=== PATIENT | female | born 1945 | race Caucasian/White ===

== ENCOUNTER 2016-12-14 16:19 | Inpatient (IN) | payer MEDICARE, BC ==
[2016-12-14] MEDS ORDERED: ALBUTEROL NEB SOL 2.5MG/3ML 1 VIAL SOL NEB PRN (16:24)
[2016-12-14] MEDS ORDERED: LEVOFLOXACIN 500 MG (PREMIX) 500 MG/100 ML SOL IV SCH (17:00)
[2016-12-14] MEDS: SOLUMEDROL 125 MG/2 ML 125 MG/2 ML PDS IV SCH ×2 (17:00→22:12)
[2016-12-14] MEDS: SODIUM CHLORIDE 0.9% FLUSH 10 ML SOL IV SCH ×3 (17:16→22:13)
[2016-12-14] MEDS ORDERED: POTASSIUM CHLORIDE 2 MEQ/ML 40 MEQ, LIDOCAINE HCL 1% MDV 2 ML in SODIUM CHLORIDE 0.9% 5... IV ONE (17:58)
[2016-12-14] MEDS ORDERED: POTASSIUM CHLORIDE 10 MEQ TER PO SCH (18:00)
[2016-12-14] MEDS ORDERED: ZOLPIDEM TARTRATE 5 MG PO PRN (18:12)
[2016-12-14] MEDS: ALBUTEROL/IPRATROPIUM 1 VIAL SOL INH SCH ×2 (18:18→21:28)
[2016-12-14] MEDS ORDERED: POTASSIUM CHLORIDE 2 MEQ/ML SOL IV ONE (18:42)
[2016-12-14] MEDS ORDERED: LIDOCAINE HCL 1% MPF SOL ONE (18:42)
[2016-12-14] MEDS ORDERED: PATIENT EDUCATION 1 MISC PRN (20:01)
[2016-12-14] MEDS: ASPIRIN EC 81 MG PO SCH (20:50)
[2016-12-14] MEDS: METOPROLOL TARTRATE 25 MG TAB PO SCH (20:50)
[2016-12-14] MEDS: Non-Formulary Medication MISC (Fluticasone/Salmeterol 500/50 1 PUFF) INH SCH (20:51)
[2016-12-14] MEDS ORDERED: VALSARTAN 320 MG PO SCH (21:00)
[2016-12-14] MEDS ORDERED: VALSARTAN 80 MG TABLET PO SCH (21:00)
[2016-12-14] MEDS: ROSUVASTATIN CALCIUM 10 MG TAB PO SCH (21:28)
[2016-12-14] MEDS ORDERED: VALSARTAN 320 MG TAB PO SCH (21:30)
[2016-12-14] MEDS: ZOLPIDEM TARTRATE 5 MG TAB PO PRN (22:26)
[2016-12-15] MEDS: SODIUM CHLORIDE 0.9% FLUSH 10 ML SOL IV SCH ×3 (00:20→17:09)
[2016-12-15] MEDS: ALBUTEROL/IPRATROPIUM 1 VIAL SOL INH SCH ×6 (02:01→21:59)
[2016-12-15] MEDS: SOLUMEDROL 125 MG/2 ML 125 MG/2 ML PDS IV SCH (04:36)
[2016-12-15] MEDS: LEVOTHYROXINE SODIUM 50 MCG TAB PO SCH (06:24)
[2016-12-15 07:26] LABS: BASOPHILS % (AUTO) 0 % (0-3); EOSINOPHILS % (AUTO) 0 % (0-9); HEMATOCRIT 40 % (35-47); MEAN CORPUSCULAR HGB CONC 34.8 gm/dl (32.0-36.0); MEAN CORPUSCULAR VOLUME 96 fL (81-99); MONOCYTES % (AUTO) 1.4 % (0-12); NEUTROPHILS % (AUTO) 94.7 % (37-80)
[2016-12-15 07:30] LABS: CALCIUM 9.7 mg/dl (8.5-10.1); POTASSIUM 3.8 mMol/L (3.5-5.1)
[2016-12-15] MEDS ORDERED: [UNRECOGNIZED DRUG - OTHER] INH SCH (09:00)
[2016-12-15] MEDS ORDERED: FUROSEMIDE 20 MG PO SCH (09:00)
[2016-12-15] MEDS ORDERED: FLUTICASONE PROPIONATE NAS SCH (09:00)
[2016-12-15] MEDS: ESCITALOPRAM 10 MG TAB PO SCH (09:05)
[2016-12-15] MEDS: METOPROLOL TARTRATE 25 MG TAB PO SCH (09:05)
[2016-12-15] MEDS: LEVOFLOXACIN 500 MG TAB PO SCH (09:05)
[2016-12-15] MEDS: FUROSEMIDE 20 MG TAB PO SCH (09:05)
[2016-12-15] MEDS: ENOXAPARIN 40 MG SOL SC SCH (09:06)
[2016-12-15] MEDS: ASCORBIC ACID/COPPER/LUTEIN/ 1 CAP CAP PO SCH ×2 (09:06→20:04)
[2016-12-15] MEDS: PREDNISONE 20 MG TAB PO SCH (09:06)
[2016-12-15] MEDS: NIFEDIPINE 30 MG ER TABLET PO SCH (09:07)
[2016-12-15] MEDS: CHOLECALCIFEROL 1,000 IU TAB PO SCH (09:07)
[2016-12-15] MEDS: Non-Formulary Medication MISC (Fluticasone/Salmeterol 500/50 1 PUFF) INH SCH (09:08)
[2016-12-15] MEDS: CALCITONIN (SALMON) 200 IU/Actuation SPR NAS SCH (09:25)
[2016-12-15] MEDS: VALSARTAN 80 MG TABLET PO SCH (20:01)
[2016-12-15] MEDS: FLUTICASONE PROPIONATE SPR NAS SCH (20:02)
[2016-12-15] MEDS: ASPIRIN EC 81 MG PO SCH (20:03)
[2016-12-15] MEDS: ROSUVASTATIN CALCIUM 10 MG TAB PO SCH (20:03)
[2016-12-15] MEDS: METOPROLOL TARTRATE 50 MG TAB PO SCH (20:04)
[2016-12-15] MEDS ORDERED: FLUTICASONE/SALMETEROL 500/50 60 PUFF DSK INH SCH (21:00)
[2016-12-15] MEDS: ZOLPIDEM TARTRATE 5 MG TAB PO PRN (21:58)
[2016-12-16] MEDS: ALBUTEROL/IPRATROPIUM 1 VIAL SOL INH SCH ×6 (01:32→21:23)
[2016-12-16] MEDS: SODIUM CHLORIDE 0.9% FLUSH 10 ML SOL IV SCH ×3 (01:33→19:03)
[2016-12-16] MEDS: LEVOTHYROXINE SODIUM 50 MCG TAB PO SCH (06:06)
[2016-12-16 08:36] LABS: BASOPHILS % (AUTO) 0 % (0-3); EOSINOPHILS % (AUTO) 0 % (0-9); HEMATOCRIT 40 % (35-47); MEAN CORPUSCULAR HGB CONC 35.4 gm/dl (32.0-36.0); MEAN CORPUSCULAR VOLUME 96 fL (81-99); NEUTROPHILS % (AUTO) 81.3 % (37-80)
[2016-12-16 08:47] LABS: CALCIUM 9.7 mg/dl (8.5-10.1); POTASSIUM 3.2 mMol/L (3.5-5.1)
[2016-12-16] MEDS: METOPROLOL TARTRATE 50 MG TAB PO SCH ×2 (08:56→21:22)
[2016-12-16] MEDS: LEVOFLOXACIN 500 MG TAB PO SCH (08:56)
[2016-12-16] MEDS: ESCITALOPRAM 10 MG TAB PO SCH (08:56)
[2016-12-16] MEDS: FUROSEMIDE 20 MG TAB PO SCH (08:56)
[2016-12-16] MEDS: ENOXAPARIN 40 MG SOL SC SCH (08:56)
[2016-12-16] MEDS: PREDNISONE 20 MG TAB PO SCH (08:57)
[2016-12-16] MEDS: ASCORBIC ACID/COPPER/LUTEIN/ 1 CAP CAP PO SCH ×2 (08:57→21:17)
[2016-12-16] MEDS: CHOLECALCIFEROL 1,000 IU TAB PO SCH (08:57)
[2016-12-16] MEDS: NIFEDIPINE 30 MG ER TABLET PO SCH (08:57)
[2016-12-16] MEDS: CALCITONIN (SALMON) 200 IU/Actuation SPR NAS SCH (08:58)
[2016-12-16] MEDS ORDERED: FLUTICASONE PROPIONATE SPR NAS SCH ×2 (09:00→21:00)
[2016-12-16 10:16] LABS: NORMAL RBCS PRESENT
[2016-12-16] MEDS: VALSARTAN 80 MG TABLET PO SCH (21:21)
[2016-12-16] MEDS: ROSUVASTATIN CALCIUM 10 MG TAB PO SCH (21:22)
[2016-12-16] MEDS: ASPIRIN EC 81 MG PO SCH (21:22)
[2016-12-16] MEDS: FLUTICASONE PROPIONATE SPR NAS SCH (21:27)
[2016-12-16] MEDS: ZOLPIDEM TARTRATE 5 MG TAB PO PRN (22:42)
[2016-12-17] MEDS: ALBUTEROL/IPRATROPIUM 1 VIAL SOL INH SCH ×6 (03:58→22:08)
[2016-12-17] MEDS: LEVOTHYROXINE SODIUM 50 MCG TAB PO SCH (06:45)
[2016-12-17] MEDS: SODIUM CHLORIDE 0.9% FLUSH 10 ML SOL IV SCH ×3 (06:45→16:42)
[2016-12-17 07:12] LABS: BASOPHILS % (AUTO) 1 % (0-3); EOSINOPHILS % (AUTO) 0 % (0-9); HEMATOCRIT 40 % (35-47); MEAN CORPUSCULAR HGB CONC 33.6 gm/dl (32.0-36.0); MEAN CORPUSCULAR VOLUME 96 fL (81-99); MONOCYTES % (AUTO) 11.4 % (0-12); NEUTROPHILS % (AUTO) 70.7 % (37-80)
[2016-12-17] MEDS ORDERED: POTASSIUM CHLORIDE 10 MEQ TER PO ONE (08:36)
[2016-12-17] MEDS: ESCITALOPRAM 10 MG TAB PO SCH (09:46)
[2016-12-17] MEDS: METOPROLOL TARTRATE 50 MG TAB PO SCH ×2 (09:47→22:15)
[2016-12-17] MEDS: PREDNISONE 20 MG TAB PO SCH (09:47)
[2016-12-17] MEDS: LEVOFLOXACIN 500 MG TAB PO SCH (09:47)
[2016-12-17] MEDS: CHOLECALCIFEROL 1,000 IU TAB PO SCH (09:48)
[2016-12-17] MEDS: FUROSEMIDE 20 MG TAB PO SCH (09:50)
[2016-12-17] MEDS: ENOXAPARIN 40 MG SOL SC SCH (09:52)
[2016-12-17] MEDS: NIFEDIPINE 30 MG ER TABLET PO SCH (09:53)
[2016-12-17] MEDS: CALCITONIN (SALMON) 200 IU/Actuation SPR NAS SCH (10:13)
[2016-12-17] MEDS: ASCORBIC ACID/COPPER/LUTEIN/ 1 CAP CAP PO SCH ×2 (12:31→22:16)
[2016-12-17] MEDS: POTASSIUM CHLORIDE 10 MEQ TER PO SCH ×2 (12:32→22:14)
[2016-12-17] MEDS: ZOLPIDEM TARTRATE 5 MG TAB PO PRN (22:12)
[2016-12-17] MEDS: ASPIRIN EC 81 MG PO SCH (22:12)
[2016-12-17] MEDS: ROSUVASTATIN CALCIUM 10 MG TAB PO SCH (22:13)
[2016-12-17] MEDS: FLUTICASONE PROPIONATE SPR NAS SCH (22:14)
[2016-12-17] MEDS: VALSARTAN 80 MG TABLET PO SCH (22:24)
[2016-12-18] MEDS: ALBUTEROL/IPRATROPIUM 1 VIAL SOL INH SCH ×3 (04:57→10:02)
[2016-12-18] MEDS: LEVOTHYROXINE SODIUM 50 MCG TAB PO SCH (06:24)
[2016-12-18 07:02] LABS: BASOPHILS % (AUTO) 1 % (0-3); EOSINOPHILS % (AUTO) 1 % (0-9); HEMATOCRIT 40 % (35-47); MEAN CORPUSCULAR HGB CONC 34.2 gm/dl (32.0-36.0); MEAN CORPUSCULAR VOLUME 96 fL (81-99); MONOCYTES % (AUTO) 9.5 % (0-12); NEUTROPHILS % (AUTO) 69.9 % (37-80)
[2016-12-18 07:15] LABS: POTASSIUM 3.8 mMol/L (3.5-5.1)
[2016-12-18 08:28] VITALS: BP 149/94; PULSE 60; TEMP 97.6
[2016-12-18] MEDS: CHOLECALCIFEROL 1,000 IU TAB PO SCH (08:52)
[2016-12-18] MEDS: ESCITALOPRAM 10 MG TAB PO SCH (08:52)
[2016-12-18] MEDS: NIFEDIPINE 30 MG ER TABLET PO SCH (08:52)
[2016-12-18] MEDS: LEVOFLOXACIN 500 MG TAB PO SCH (08:52)
[2016-12-18] MEDS: FUROSEMIDE 20 MG TAB PO SCH (08:52)
[2016-12-18] MEDS: METOPROLOL TARTRATE 50 MG TAB PO SCH (08:52)
[2016-12-18] MEDS: CALCITONIN (SALMON) 200 IU/Actuation SPR NAS SCH (08:54)
[2016-12-18] MEDS: ASCORBIC ACID/COPPER/LUTEIN/ 1 CAP CAP PO SCH (08:54)
[2016-12-18] MEDS: ENOXAPARIN 40 MG SOL SC SCH (08:57)
[2016-12-18] MEDS: PREDNISONE 20 MG TAB PO SCH (08:58)
[2016-12-18] MEDS: POTASSIUM CHLORIDE 10 MEQ TER PO SCH (08:58)
[2016-12-18 10:05] VITALS: RESP 22; O2SAT 94
== END 2016-12-18 13:40 | disposition home or self-care (01) | DRG 192 ==
LOC: ACUTE CARE 16:26
PROVIDERS: ADMIT Family Medicine; ATTEND Family Medicine
PROC: F02Z1ZZ Dressing Assessment (ICD-10-PCS; principal; 2016-12-17)
PROC: F02Z0ZZ Bathing/Showering Assessment (ICD-10-PCS; 2016-12-17)
PROC: F02Z3ZZ Grooming/Personal Hygiene Assessment (ICD-10-PCS; 2016-12-17)
PROC: F01ZDZZ Gait and/or Balance Assessment (ICD-10-PCS; 2016-12-17)
PROC: F01ZBZZ Bed Mobility Assessment (ICD-10-PCS; 2016-12-17)
PROC: F01ZCZZ Transfer Assessment (ICD-10-PCS; 2016-12-17)
DX: J44.1 Chronic obstructive pulmonary disease with (acute) exacerbation (principal); I10 Essential (primary) hypertension; I25.10 Atherosclerotic heart disease of native coronary artery without angina pectoris; E87.6 Hypokalemia
CPT/HCPCS: 36415; 80048; 84132; 85025; 94150; 94640; 94760; J1650; J1956; J2930; J3480; J7603; J7620; J2001

== ENCOUNTER 2017-04-12 12:46 | Outpatient (CLI) | payer MEDICARE, BC ==
[2016-12-18 10:05] VITALS: O2SAT 94
== END 2017-04-12 12:47 | disposition home or self-care (01) | DRG 563 ==
LOC: CONVCARE 12:46
PROVIDERS: ATTEND Orthopaedic Surgery
DX: S42.251A Displaced fracture of greater tuberosity of right humerus, initial encounter for closed fracture (principal)
CPT/HCPCS: 73030

== ENCOUNTER 2017-04-26 12:13 | Outpatient (CLI) | payer MEDICARE, BC ==
[2016-12-18 10:05] VITALS: O2SAT 94
== END 2017-04-26 12:14 | disposition home or self-care (01) | DRG 556 ==
LOC: CONVCARE 12:13
PROVIDERS: ATTEND Orthopaedic Surgery
DX: M25.521 Pain in right elbow (principal); S42.201D Unspecified fracture of upper end of right humerus, subsequent encounter for fracture with routine healing
CPT/HCPCS: 73030; 73070

== ENCOUNTER 2017-05-24 10:02 | Outpatient (CLI) | payer MEDICARE, BC ==
[2016-12-18 10:05] VITALS: O2SAT 94
== END 2017-05-24 10:03 | disposition home or self-care (01) | DRG 561 ==
LOC: RAD 10:02
PROVIDERS: ATTEND Orthopaedic Surgery
DX: S42.351D Displaced comminuted fracture of shaft of humerus, right arm, subsequent encounter for fracture with routine healing (principal)
CPT/HCPCS: 73030

== ENCOUNTER 2018-02-23 04:38 | Emergency (ER) | payer BC, MEDICARE ==
[2018-02-23] MEDS ORDERED: ONDANSETRON HCL 4 MG/2 ML SOL ONE (05:12)
[2018-02-23] MEDS ORDERED: ONDANSETRON HCL 4 MG/2 ML SOL IV ONE (05:20)
[2018-02-23] MEDS ORDERED: SODIUM CHLORIDE 0.9% 1000ML 1,000 ML IV ONE ×2 (05:30→08:17)
[2018-02-23 06:01] LABS: HEMATOCRIT 16 % (35-47); MEAN CORPUSCULAR HEMOGLOBIN 31.9 pg (27.0-32.0); MEAN CORPUSCULAR HGB CONC 35.6 gm/dl (32.0-36.0); MEAN CORPUSCULAR VOLUME 90 fL (81-99)
[2018-02-23 06:10] LABS: HEMOGLOBIN 5.6 gm/dl (12.0-15.5)
[2018-02-23 06:17] LABS: ALBUMIN 3.1 gm/dl (3.4-5.0); BILIRUBIN,TOTAL 0.3 mg/dl (0.2-1.0); CARBON DIOXIDE 24.7 mEq/L (21-32); TOTAL PROTEIN 5.6 gm/dl (6.4-8.2)
[2018-02-23 06:20] LABS: INR 1.01 (0.86-1.12)
[2018-02-23 06:26] LABS: POTASSIUM 6.7 mMol/L (3.5-5.1)
[2018-02-23] MEDS ORDERED: SODIUM CHLORIDE 0.9% 1000ML 1,000 ML IV SCH (07:00)
[2018-02-23 07:14] LABS: ABO O; RH TYPE Positive
[2018-02-23 07:16] LABS: UNIT TYPE O POSITIVE
[2018-02-23] MEDS ORDERED: KETAMINE HYDROCHLORIDE 50 MG/ML SOL ONE (07:23)
[2018-02-23] MEDS ORDERED: NOREPINEPHRINE BITARTRATE 4 MG/4 ML SOL IV ONE (07:28)
[2018-02-23] MEDS: SODIUM CHLORIDE 0.9% FLUSH 10 ML SOL IV PRN ×3 (07:30→08:54)
[2018-02-23 07:34] LABS: ANTIBODY SCREEN Negative
[2018-02-23 07:40] VITALS: TEMP 92.7
[2018-02-23] MEDS ORDERED: ROCURONIUM BROMIDE 10 MG/ML SOL IV ONE ×2 (07:43→07:54)
[2018-02-23] MEDS ORDERED: DEXTROSE 50% 1 VIAL SOL IV ONE ×2 (07:43→07:44)
[2018-02-23] MEDS ORDERED: INSULIN HUMAN REGULAR 100 U/ML SOL IV ONE (07:43)
[2018-02-23] MEDS ORDERED: INSULIN HUMAN REGULAR 100 U/ML SOL ONE ×2 (07:45→07:47)
[2018-02-23] MEDS ORDERED: NOREPINEPHRINE 4 MG/4 ML 4 MG in DEXTROSE 500 ML 500 ML IV SCH (07:45)
[2018-02-23 07:51] LABS: BAND NEUTROPHILS % (MANUAL) 0 %; BASOPHILS % (MANUAL) 0 % (0-3); EOSINOPHILS % (MANUAL) 0 % (0-9); LYMPHOCYTES % (MANUAL) 5 % (10-50); MONOCYTES % (MANUAL) 11 % (0-12); NEUTROPHILS % (MANUAL) 84 % (37-80)
[2018-02-23 07:52] LABS: NUCLEATED RED BLOOD CELLS 1 /100WBCS; OVALOCYTES PRESENT; POIKILOCYTOSIS SLIGHT AMT
[2018-02-23] MEDS ORDERED: KETAMINE HYDROCHLORIDE 50 MG/ML SOL IV ONE (07:53)
[2018-02-23] MEDS ORDERED: MIDAZOLAM 2 MG/2 ML SOL ONE ×2 (07:56→07:57)
[2018-02-23] MEDS ORDERED: MIDAZOLAM 2 MG/2 ML SOL IV ONE (08:04)
[2018-02-23 08:07] VITALS: RESP 32
[2018-02-23 08:32] VITALS: BP 111/55
[2018-02-23 08:35] VITALS: PULSE 78; O2SAT 86
== END 2018-02-23 08:25 | disposition short-term general hospital (02) | DRG 605 ==
LOC: ED 04:38
DX: S20.211A Contusion of right front wall of thorax, initial encounter (principal); C56.9 Malignant neoplasm of unspecified ovary; R53.83 Other fatigue; R79.82 Elevated C-reactive protein (CRP); R58 Hemorrhage, not elsewhere classified; W19.XXXA Unspecified fall, initial encounter
CPT/HCPCS: 31500; 36415; 71045; 74177; 80053; 82150; 85007; 85027; 85610; 86850; 86900; 86901; 86920; 86927; 87040; 93005; 99291; J1815; J2250; J2405; P9016; P9017; Q9967; J3490